=== PATIENT | male | born 1980 | race Caucasian/White ===

== ENCOUNTER 2022-10-16 17:01 | Outpatient (CLI) | payer BC ==
[2022-10-16 17:52] LABS: Hemoglobin 15.9 g/dL (13.5-17.5); Mean Corpuscular HGB CONC 34.4 g/dL (32.0-36.0); Mean Corpuscular Hemoglobin 29.2 pg (27.0-33.0); Mean Corpuscular Volume 84.9 fl (81.2-95.1); Mean Platelet Volume 9.5 fl (7.4-10.4); Platelet Count 283 10x3/uL (150-450); RBC Distribution Width 13.4 % (11.5-14.5); Red Blood Cell (RBC) Count 5.44 10x6/uL (4.32-5.72); White Blood Cell (WBC) Count 6.6 10x3/uL (3.5-10.5)
[2022-10-16 18:14] LABS: PTT 27.5 sec (22.0-33.0); Prothrombin Time 10.4 sec (9.5-12.1)
== END 2022-10-16 17:02 | disposition home or self-care (01) ==
LOC: LABBT 17:01
PROVIDERS: ATTEND Neurological Surgery
DX: M51.26 Other intervertebral disc displacement, lumbar region (principal); M48.061 Spinal stenosis, lumbar region without neurogenic claudication
CPT/HCPCS: 85027; 85610; 85730

== ENCOUNTER 2022-10-18 10:26 | Day surgery (SDC) | payer BC ==
[2022-10-17 12:30] VITALS: BMI 26.4
[2022-10-18] MEDS ORDERED: Neomycin-Polymyxin 1 ML AMP ONE (10:38)
[2022-10-18] MEDS ORDERED: Thrombin 5000 UNITS/5 ML VIAL ONE (10:38)
[2022-10-18] MEDS ORDERED: Vancomycin 1 GM VIAL ONE (10:38)
[2022-10-18] MEDS ORDERED: Bupivacaine HCl 0.5%/Epinephrine 1:200,000/PF 30 ml Vial ONE (10:38)
[2022-10-18] MEDS ORDERED: Fentanyl 250 MCG/5 ML VIAL ONE (11:30)
[2022-10-18] MEDS ORDERED: CEFAZOLIN 2 GM VIAL ONE (12:07)
[2022-10-18] MEDS ORDERED: Sodium Chloride 0.9% 100 ML ONE (12:07)
[2022-10-18] MEDS ORDERED: Ondansetron PF 4 MG/2 ML Vial ONE (12:20)
[2022-10-18] MEDS ORDERED: Dexamethasone 20 MG/5 ML VIAL ONE (12:20)
[2022-10-18] MEDS ORDERED: Lidocaine 1% PF 5 ML VIAL ONE (12:20)
[2022-10-18] MEDS ORDERED: Rocuronium Bromide 10 MG/ML (10ML VIAL) ONE (12:20)
[2022-10-18] MEDS ORDERED: PROPOFOL 200 MG/20 ML VIAL ONE (12:20)
[2022-10-18] MEDS ORDERED: Glycopyrrolate 0.2 MG/ML 5 ML SYRINGE ONE (12:20)
[2022-10-18] MEDS ORDERED: NEOSTIGMINE 3 MG/3 ML SYR 3 MG/3 ML SYRINGE ONE (12:20)
[2022-10-18] MEDS ORDERED: Ketorolac Tromethamine 30 MG/ML VIAL ONE (12:20)
[2022-10-18] MEDS ORDERED: Tamsulosin HCl 0.4 MG CAP ONE (15:35)
[2022-10-18] MEDS ORDERED: Fentanyl 100 MCG/2 ML VIAL ONE (15:48)
[2022-10-18] MEDS ORDERED: HYDROcodone/Acetaminophen 5/325 mg Tablet ONE (16:30)
== END 2022-10-18 16:57 | disposition home or self-care (01) ==
LOC: SDC 10:26
PROVIDERS: ATTEND Neurological Surgery
PROC: 01NR0ZZ Release Sacral Nerve, Open Approach (ICD-10-PCS; principal; 2022-10-18)
DX: M48.07 Spinal stenosis, lumbosacral region (principal); M51.17 Intervertebral disc disorders with radiculopathy, lumbosacral region; M48.062 Spinal stenosis, lumbar region with neurogenic claudication; I10 Essential (primary) hypertension; Z86.73 Personal history of transient ischemic attack (TIA), and cerebral infarction without residual deficits; Z79.82 Long term (current) use of aspirin; Z79.899 Other long term (current) drug therapy
CPT/HCPCS: J1100; J1885; J2405; J2704; J3010; J3370; J3490